=== PATIENT | female | born 1940 | race Caucasian/White ===

== ENCOUNTER 2019-07-02 04:25 | Emergency (ER) | payer BC ==
[~2019-07-02] VITALS: Ht 160 cm; Wt 79.4 kg
[2019-07-02 04:27] VITALS: BP 102/60
[2019-07-02] MEDS ORDERED: KETOROLAC 60 MG/2 ML VIAL IM ONE (04:30)
--- NOTE | 2019-07-02 04:40 | NUR ---
78 Y/O FEMALE JONATHAN Crawley C/O 04/15 LEFT LEG PAIN. PT DENIES FALLING OR HAVING HX OF FALLS. PT STATES HER PAIN IS UNPROVOKED,"I DON;T KNOW WHY I HAD THIS SUDDEN PAIN." PT ADMITS TO NEEDING A CANE TO ASSIT WITH AMBULATION. PT DENIES TAKING ANY PAIN MEDICATIONS FOR PAIN RELIEF. PT TAKES VERAPAMIL, SYNTHROID, AND HYDROCHOLOROTHYAZIDE DAILY. PT AXO X4. RESPIRATIONS ARE EVEN AND UNLABORED. SKIN IS WARM AND DRY TO TOUCH. MED HX: HYPOTHYROID, HTN ALLERGIES: PENECILLIN, KUSHAL-INHIBITORS Addendum: 07/02/19 at 0539 by [facility] 78 Y/O FEMALE JONATHAN Crawley C/O 04/15 RIGHT LEG PAIN. PT DENIES FALLING OR HAVING HX OF FALLS. PT STATES HER PAIN IS UNPROVOKED,"I DON'T KNOW WHY I HAD THIS SUDDEN PAIN." PT ADMITS TO NEEDING A CANE TO ASSIT WITH AMBULATION. PT DENIES TAKING ANY PAIN MEDICATIONS FOR PAIN RELIEF. PT TAKES VERAPAMIL, SYNTHROID, AND HYDROCHOLOROTHYAZIDE DAILY. PT AXO X4. RESPIRATIONS ARE EVEN AND UNLABORED. SKIN IS WARM AND DRY TO TOUCH. MED HX: HYPOTHYROID, HTN ALLERGIES: PENECILLIN, KUSHAL-INHIBITORS
--- NOTE | 2019-07-02 04:50 | NUR ---
PT C/O 10/10 PAIN IN RIGHT LEG/ HIP. PT GIVEN TORADOL IM FOR PAIN RELEIF. PT ALSO REPOSITIONED FOR COMFORT.
--- NOTE | 2019-07-02 05:15 | NUR ---
PT RESING IN BED SITTING UP AND TALKING ON THE PHONE. PT RESPIRATIONS ARE EVEN AND UNLABORED. SKIN IS WARM AND DRY TO TOUCH. NADR NOTED FROM IM MEDICATION GIVEN.
--- NOTE | 2019-07-02 05:30 | NUR ---
PT PAIN REEVALUATED. PT PAIN REDUCED FROM 10/10 R LEG PAIN TO 5/10 R LEG PAIN AFTER PAIN MEDICATION GIVEN. PT RESTING IN BED SITTING UPRIGHT. RESPIRATIONS ARE EVEN AND UNLABORED, SKIN IS WARM AND DRY TO TOUCH.
[2019-07-02] MEDS ORDERED: MORPHINE SULFATE 4 MG/ML SYR IM ONE (06:00)
--- NOTE | 2019-07-02 06:10 | NUR ---
PT STATES "MY PAIN CAME BACK IT'S A 10/10 AGAIN IN MY LEG." PT PRESENTS WITH FACIAL GRIMACE AND IS UNABLE TO AMBULATE D/T PAIN. PT ASSISTED IN REPOSITIONING IN BED FOR COMFORT. NOTIFIED OF PT CHANGE IN PAIN STATUS. NEW ORDERS RECIVED.
--- NOTE | 2019-07-02 06:15 | NUR ---
PT GIVEN NEW MED ORDER FOR PAIN-MORPHINE 4MG/ML IM. PT PAIN CURRENTLY 10/10 PAIN IN RIGHT LEG. RESPIRATIONS ARE EVEN AND UNLABORED. SKIN IS WARM AND DRY TO TOUCH. WILL CONTINUE TO MONITOR. BED IN LOWEST POSITION AND LOCKED IN PLACE.
--- NOTE | 2019-07-02 06:25 | NUR ---
PT NOTIFIED DAUGHTER AND ARRAGNED FOR HER TO PICK PT UP. ETA 45 MINS.
--- NOTE | 2019-07-02 06:32 | NUR ---
AMBULATES TO WITH SLOW GAIT UTILIZING CANE AND RN ASSISTANCE. LIMPING NOTED TO RIGHT SIDE.
--- NOTE | 2019-07-02 06:42 | NUR ---
REPORTS 6/10 PAIN. STATES PAIN IS TOLERABLE AT THIS TIME.
[2019-07-02 06:45] VITALS: BP 102/60
--- NOTE | 2019-07-02 06:45 | NUR ---
Patient discharged with v/s stable. Written and verbal after care instructions given and explained. Patient alert, oriented and verbalized understanding of instructions. Wheel Chair Assisted with to car. All questions addressed prior to discharge. ID band removed. Patient advised to follow up with PMD. Rx of Naprosyn given. Patient educated on indication of medication including possible reaction and side effects. Opportunity to ask questions provided and answered. Discharged by Dr. Naylor.
== END 2019-07-02 06:25 | disposition home or self-care (01) ==
LOC: MED 04:25
DX: S73.101A Unspecified sprain of right hip, initial encounter (principal); X58.XXXA Exposure to other specified factors, initial encounter; Y93.89 Activity, other specified; Y92.89 Other specified places as the place of occurrence of the external cause; Y99.8 Other external cause status; Z88.0 Allergy status to penicillin; Z88.8 Allergy status to other drugs, medicaments and biological substances; I10 Essential (primary) hypertension; E03.9 Hypothyroidism, unspecified; Z96.641 Presence of right artificial hip joint
CPT/HCPCS: 96372; 99283; J1885; J2270